=== PATIENT | female | born 1965 | race Caucasian/White ===

== ENCOUNTER 2019-05-31 08:22 | Inpatient (IN) ==
--- NOTE | 2019-05-06 16:19 | PAT Medication Instructions ---
Medication Instructions Date of Service May 06, 2019 Home Medications aspirin 81 mg tablet,delayed release 81 mg PO DAILY atorvastatin 40 mg tablet 40 mg PO QPM carvedilol 12.5 mg tablet 12.5 mg PO BID dulaglutide 1.5 mg/0.5 mL subcutaneous pen injector 1.5 mg SQ WEEKLY ezetimibe 10 mg tablet 10 mg PO HS metformin 1,000 mg tablet 1,000 mg PO BID pantoprazole 40 mg tablet,delayed release 40 mg PO QAM ramipril 10 mg capsule 10 mg PO QAM albuterol sulfate 1 inh INHALATION UD PRN cholecalciferol (vitamin D3) 5,000 unit PO DAILY ibuprofen 400 mg PO BID Continue as directed dulaglutide 1.5 mg/0.5 mL subcutaneous pen injector 1.5 mg SQ WEEKLY ASK your surgeon for instructions ibuprofen 400 mg PO BID DO NOT take the morning of surgery metformin 1,000 mg tablet 1,000 mg PO BID ramipril 10 mg capsule 10 mg PO QAM cholecalciferol (vitamin D3) 5,000 unit PO DAILY Take morning of surgery With a small sip of water, OTHERWISE NOTHING TO EAT OR DRINK AFTER MIDNIGHT: aspirin 81 mg tablet,delayed release 81 mg PO DAILY carvedilol 12.5 mg tablet 12.5 mg PO BID pantoprazole 40 mg tablet,delayed release 40 mg PO QAM albuterol sulfate 1 inh INHALATION UD PRN (if needed) Take evening before surgery atorvastatin 40 mg tablet 40 mg PO QPM carvedilol 12.5 mg tablet 12.5 mg PO BID ezetimibe 10 mg tablet 10 mg PO HS metformin 1,000 mg tablet 1,000 mg PO BID albuterol sulfate 1 inh INHALATION UD PRN (if needed) Other Notes If you have any questions please call us at [phone] or [phone] or [phone] or [phone]
--- NOTE | 2019-05-07 09:49 | Anesthesiology Consultation ---
Date of Service May 07, 2019 Assessment & Plan (1) Encounter for pre-operative examination: CHECK BSG AM DOS Chart Review Chart Review: Acceptable Risk for Surgery (pending response re: optimization from cardio) and Patient seen in Pre Admission Testing Teaching & Discussion Instructed NPO after midnight before surgery, except medications with 15 cc of water. Medication instructions provided according to the PAT guidelines. History Surgery Operation Date: 05/31/19 07:45 Proposed Procedures p L5-S1 Decompression and Fusion, Possible L4-L5 with Spinal Cord Monitoring - Ryan Karimi, Height/Weight Height: 5 ft 8 in Weight: 128.7 kg Allergies Allergy/AdvReac Type Severity Reaction Status Date / Time hydrocodone Allergy Severe Severe Verified 04/30/19 13:22 Hives adhesive Allergy Unknown SKIN Verified 04/30/19 13:22 REDNESS, SKIN BLISTERS, SKIN TEAR amitriptyline Allergy Unknown RAISES Verified 04/30/19 13:53 BLOOD PRESSURE bee venom protein (honey bee) Allergy Unknown SEVERE Verified 04/30/19 13:22 SWELLING AT BITE SITE chlorhexidine Allergy Unknown SKIN Verified 04/30/19 13:53 REDNESS AND SKIN BURNING SENSATION latex Allergy Unknown SEE NOTES Verified 04/30/19 13:53 BELOW erythromycin base AdvReac Unknown STOMACH Verified 04/30/19 13:22 PAINS AND DIARRHEA Medications Home Medications Medication Instructions Recorded Confirmed Last Taken aspirin 81 mg tablet,delayed 81 mg PO DAILY 01/02/19 04/30/19 Unknown release atorvastatin 40 mg tablet 40 mg PO QPM 01/02/19 04/30/19 Unknown carvedilol 12.5 mg tablet 12.5 mg PO BID 01/02/19 04/30/19 Unknown dulaglutide 1.5 mg/0.5 mL 1.5 mg SQ WEEKLY ml 01/02/19 04/30/19 Unknown subcutaneous pen injector ezetimibe 10 mg tablet 10 mg PO HS 01/02/19 04/30/19 Unknown metformin 1,000 mg tablet 1,000 mg PO BID 01/02/19 04/30/19 Unknown pantoprazole 40 mg tablet,delayed 40 mg PO QAM 01/02/19 04/30/19 Unknown release ramipril 10 mg capsule 10 mg PO QAM 01/02/19 04/30/19 Unknown albuterol sulfate 1 inh INHALATION UD PRN 04/30/19 04/30/19 Unknown cholecalciferol (vitamin D3) 5,000 unit PO DAILY 04/30/19 04/30/19 Unknown [Vitamin D3] ibuprofen 400 mg PO BID 04/30/19 04/30/19 Unknown Past Medical History Medical History (Updated 05/07/19 @ 16:27 by Hong Stone) Asthma (Chronic) CAD (coronary artery disease) (Chronic) S/P [place] 2017. COPD (chronic obstructive pulmonary disease) (Chronic) Does not use Albuterol or a daily inhaler. States she has known triggers and can avoid them. Degenerative disc disease Depression (Chronic) HX OF Diabetes GERD (gastroesophageal reflux disease) Herniated disc HTN (hypertension) (Chronic) Hx of myocardial infarction (Chronic) 2017 Hypercholesteremia (Chronic) Morbid obesity Pars defect of lumbar spine Sleep apnea CPAP Spondylolisthesis Spondylosis Exercise / Class Metabolic Activity III < 4 Walking/Shop/Light housework (Mild VELEZ with ambulation on one level, uses wheelchair at home due to severe leg pain/weakness 2/2 spinal stenosis. No CP.) Past Family History Family History (Updated 04/30/19 @ 13:34 by Jaylon Ureña RN) Grandmother (Paternal) Family history of colon cancer Grandfather (Paternal) Family history of colon cancer Mother Family history of diverticulitis of colon Other Family history of diabetes mellitus Past Surgical History Surgical History Cervical vertebral fusion H/O hemorrhoidectomy History of appendectomy History of coronary artery stent placement 2017 History of hysterectomy History of shoulder surgery LEFT Past Anesthesia History No Hx of Anesthesia Complications and No Family Hx of Anesthesia Complications History of PONV No Hx of PONV and Hx of Motion Sickness Social History Smoking Status: Current every day smoker tobacco type: cigarettes Smoking cigarettes per day: 5 CIGS A DAY / ADVISED NPO Do You Dip or Chew Tobacco: No Hx Alcohol Use: No Hx Substance Use: No substance use type: does not use Review of Systems Pt denies any recent chest pain, shortness of breath above baseline, palpitations, cough, fever or URI. Physical Exam Vital Signs BP: 169/88 P: 73bpm SPO2: 95% RA T: 98.3 F R: 16 Constitutional + morbidly obese ENMT Mouth: + dentures (upper full, posts in bottom but bottom denture is broken and does not wear) and + edentulous Thyromental Distance: < 3.5 Finger Breadths (3) Mallampati Class: II Neck normal visual inspection; neck extension not limited Respiratory normal respiratory effort Auscultation: lungs clear to auscultation bilaterally Cardiovascular Rate/Rhythm: regular rate and regular rhythm Heart Sounds: no murmur Extremities: no edema Testing Laboratory Results 05/07/19 10:04 05/07/19 10:04 PT 10.4 Seconds (9.0-12.0) 05/07/19 10:04 INR 1.0 (0.9-1.1) 05/07/19 10:04 APTT 26.2 Seconds (21.0-31.0) 05/07/19 10:04 Hemoglobin A1c 7.3 % (4.5-5.6) H 05/07/19 10:04 Urine Color Yellow 05/07/19 Unknown Urine Appearance Clear (Clear) 05/07/19 Unknown Urine pH 5.5 (4.5-7.5) 05/07/19 Unknown Ur Specific Roby 1.011 (1.000-1.030) 05/07/19 Unknown Urine Protein Negative (Negative) 05/07/19 Unknown Urine Glucose (UA) Negative (Negative) 05/07/19 Unknown Urine Ketones Negative (Negative) 05/07/19 Unknown Urine Nitrite Negative (Negative) 05/07/19 Unknown Ur Leukocyte Esterase Negative (Negative) 05/07/19 Unknown Blood Type A Negative 05/07/19 10:04 Antibody Screen NEGATIVE 05/07/19 10:04 Electrocardiogram Date: 10/01/18 Findings: + NSR @ (75) Consider old anterior infarct. Stress Test Date: 06/08/18 Type: nuclear Resting EF: 69% SPECT perfusion imaging demonstrates no evidence of ischemia or infarct. Gated imaging demonstrates normal LV wall motion and contractility. Cardiac Catheterization Date: 01/03/17 Spontaneous versus catheter induced proximal right coronary artery spasm with associated transient ST segment elevation, resolved with intracoronary nitroglycerin. Nonobstructive single-vessel coronary disease. RCA proximal 30% (patent mid vessel stent), the basis of angiographic, as well as intravascular ultrasound assessment. Normal LV systolic function. Recommendations: Given the presence of coronary spasm, isosorbide mononitrate 30 mg will be added to her medical regimen... Patient will continue the remainder of her guideline-based medical therapy.
--- NOTE | 2019-05-07 10:32 | XRay Report ---
XR chest Pre-admission PA/Lat CLINICAL HISTORY: Preoperative chest COMPARISON STUDY: February 2011 FINDINGS: The heart is borderline enlarged. There is no failure. There is no focal pulmonary consolid ation. There are no pleural effusions. A slight contour bulge at the level of the left main pulmonary segment remain similar is therefore likely vascular. There are postsurgical changes present within t he cervical spine[ IMPRESSION: No active disease in the chest. ACT 112: Negative or not required by law. Electronically signed by: Moiz Goode M.D. 05/07/2019 10:31 AM
[2019-05-07 12:08] LABS: Basophils # (auto) 0.02 K/uL (0-0.2); Basophils % (auto) 0.2 %; Eosinophils # (auto) 0.12 K/uL (0-0.5); Eosinophils % (auto) 1.1 %; Hematocrit (blood only) 38.3 % (37-47); Hemoglobin 12.2 g/dL (12.0-16.0); Immature Granulocytes # (auto) 0.03 K/uL (0.00-0.02); Immature Granulocytes % (auto) 0.3 %; Lymphocytes # (auto) 3.04 K/uL (1.2-3.4); Lymphocytes % (auto) 27.2 %; Mean Corpuscular Hemoglobin 29.7 pg (25-34); Mean Corpuscular Hgb Conc 31.9 g/dL (32-36); Mean Corpuscular Volume 93.2 fL (80-100); Mean Platelet Volume 10.3 fL (7.4-10.4); Monocytes # (auto) 0.42 K/uL (0.11-0.59); Monocytes % (auto) 3.8 %; Neutrophils # (auto) 7.54 K/uL (1.4-6.5); Neutrophils % (auto) 67.4 %; Platelet Count 309 K/uL (130-400); RDW Coefficient of Variation 15.5 % (11.5-14.5); RDW Standard Deviation 52.8 fL (36.4-46.3); Red Blood Count 4.11 M/uL (4.2-5.4); White Blood Count 11.17 K/uL (4.8-10.8)
[2019-05-07 12:09] LABS: Appearance Urine Clear (Clear); Bilirubin Urine Negative (Negative); Blood Urine Negative (Negative); Color Urine Yellow; Glucose Urine UA Negative (Negative); Ketones Urine Negative (Negative); Leukocyte Esterase Urine Negative (Negative); Nitrite Urine Negative (Negative); Protein Urine Negative (Negative); Specific Gravity Urine 1.011 (1.000-1.030); Urobilinogen Urine Negative (Negative); pH Urine 5.5 (4.5-7.5)
[2019-05-07 12:18] LABS: Partial Thromboplastin Ratio 0.9; Partial Thromboplastin Time 26.2 Seconds (21.0-31.0); Prothrombin Time 10.4 Seconds (9.0-12.0)
[2019-05-07 12:25] LABS: BUN Creatinine Ratio 10.9 (10-20); Calcium 8.9 mg/dl (8.5-10.1); Creatinine Clr Calc Pharmacy 128.4 ml/min; Est GFR (African American) 111.9; Est GFR (Non-African American) 96.6; Potassium 3.9 mmol/L (3.5-5.1)
[2019-05-07 12:29] LABS: Estimated Average Glucose 163 mg/dl; Hemoglobin A1C 7.3 % (4.5-5.6)
--- NOTE | 2019-05-29 08:07 | History & Physical Report ---
Date of Service May 29, 2019 Assessment & Plan (1) Spondylolisthesis of lumbar region: At this time the patient has significant spinal pathology and progressive neurologic deficits with the risk of chronic weakness and permanent sequelae. Therefore recommending urgent lumbar decompression and fusion L5-S1 with possible fusion of L4-5. Risk benefits pros cons and alternatives were outlined in detail. Present on Admission?: Yes History of Present Illness Chief Complaint: Back pain with bilateral leg pain and weakness. Primary Care Provider: Karan Murali This is a 53-year-old female presents with chronic persistent low back pain and now worsening bilateral leg pain and weakness right greater than left. She is undergone extensive course of nonoperative care over the years but now has had progressive pain specifically involving the right buttock posterior thigh extending into the foot. In the standing walking and sitting is markedly limited. She is utilizing a wheelchair as she is unable to stand. Allergies Allergy/AdvReac Type Severity Reaction Status Date / Time hydrocodone Allergy Severe Severe Verified 04/30/19 13:22 Hives adhesive Allergy Unknown SKIN Verified 04/30/19 13:22 REDNESS, SKIN BLISTERS, SKIN TEAR amitriptyline Allergy Unknown RAISES Verified 04/30/19 13:53 BLOOD PRESSURE bee venom protein (honey bee) Allergy Unknown SEVERE Verified 04/30/19 13:22 SWELLING AT BITE SITE chlorhexidine Allergy Unknown SKIN Verified 04/30/19 13:53 REDNESS AND SKIN BURNING SENSATION latex Allergy Unknown SEE NOTES Verified 04/30/19 13:53 BELOW erythromycin base AdvReac Unknown STOMACH Verified 04/30/19 13:22 PAINS AND DIARRHEA Home Medications Home Medications Medication Instructions Recorded Confirmed Type aspirin 81 mg tablet,delayed 81 mg PO DAILY 01/02/19 04/30/19 History release atorvastatin 40 mg tablet 40 mg PO QPM 01/02/19 04/30/19 History carvedilol 12.5 mg tablet 12.5 mg PO BID 01/02/19 04/30/19 History dulaglutide 1.5 mg/0.5 mL 1.5 mg SQ WEEKLY ml 01/02/19 04/30/19 History subcutaneous pen injector ezetimibe 10 mg tablet 10 mg PO HS 01/02/19 04/30/19 History metformin 1,000 mg tablet 1,000 mg PO BID 01/02/19 04/30/19 History pantoprazole 40 mg tablet,delayed 40 mg PO QAM 01/02/19 04/30/19 History release ramipril 10 mg capsule 10 mg PO QAM 01/02/19 04/30/19 History albuterol sulfate 1 inh INHALATION UD PRN 04/30/19 04/30/19 History cholecalciferol (vitamin D3) 5,000 unit PO DAILY 04/30/19 04/30/19 History [Vitamin D3] ibuprofen 400 mg PO BID 04/30/19 04/30/19 History Past Med/Surg History Medical History (Updated 05/07/19 @ 16:27 by Hong Stone) Asthma (Chronic) CAD (coronary artery disease) (Chronic) S/P [place] 2017. COPD (chronic obstructive pulmonary disease) (Chronic) Does not use Albuterol or a daily inhaler. States she has known triggers and can avoid them. Degenerative disc disease Depression (Chronic) HX OF Diabetes GERD (gastroesophageal reflux disease) Herniated disc HTN (hypertension) (Chronic) Hx of myocardial infarction (Chronic) 2017 Hypercholesteremia (Chronic) Morbid obesity Pars defect of lumbar spine Sleep apnea CPAP Spondylolisthesis Spondylosis Surgical History Cervical vertebral fusion H/O hemorrhoidectomy History of appendectomy History of coronary artery stent placement 2017 History of hysterectomy History of shoulder surgery LEFT Family History (Updated 04/30/19 @ 13:34 by Jaylon Ureña RN) Grandmother (Paternal) Family history of colon cancer Grandfather (Paternal) Family history of colon cancer Mother Family history of diverticulitis of colon Other Family history of diabetes mellitus Social History Preferred Language: Nepali Communication Ability: Effective Visual Impairment: No Limitations Hearing Ability: Normal Public Address Technician Required: No Beliefs That Will Affect Care: None marital status: Single Current Living Situation: Family and Significant Other Current Living Situation Comment: [facility]ANCE AND CHILD current occupational status: disabled Other Information That Helps Us Care for You: Yes (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, 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) Feels Safe at Home: Yes Smoking Status: Current every day smoker Tobacco Type: cigarettes ; Cigarettes Per Day: 5 CIGS A DAY / ADVISED NPO ; Do You Dip or Chew Tobacco: No ; Tobacco Cessation Education Requested by Patient: No Hx Alcohol Use: No Hx Substance Use: No Physical Exam Physical Exam: On exam she is in obvious distress. She is unable to stand without significant assistance. She is in a wheelchair. She exhibits significant weakness at a 3/5 right dorsiflexion plantarflexion as well as a 4/5 right quadricep. Left side is a 5/5. There is marked sensory deficits to the right lower extremity compared to the left. There is evidence of tension signs on the right. Results & Data Diagnostic Findings MRI lumbar spine dated 04/26/2019 I reviewed personally. It does demonstrate evidence of modest to space collapse and retrolisthesis L4-L5 with anterior listhesis L5-S1 Bilateral neuroforaminal disease at L5-S1.
[~2019-05-31 08:22] MED LIST: ACETAMINOPHEN 500 MG TAB PO SCH; CEFAZOLIN 3000MG 72.5 ML IV SCH; CeleBREX 200 MG CAP PO SCH; GABAPENTIN 900 MG DOSE PO SCH; HYDROmorphone INJ 2 MG/ML SYR/VIAL ONE; LR 15ML/HR IV SCH; MIDAZOLAM HCL 1 MG/ML 2ML VIAL ONE; fentaNYL citrate 100 MCG/2 ML VIAL ONE
[2019-05-31] MEDS ORDERED: ePHEDrine sulfate 50 MG/ML AMP IV PRN (08:33)
[2019-05-31] MEDS ORDERED: ATROPINE SULFATE 0.1 MG/ML 10ML SYR IV PRN (08:33)
[2019-05-31] MEDS ORDERED: ONDANSETRON INJ 2 MG/ML 2 ML VIAL IV PRN ×2 (08:33→15:02)
[2019-05-31] MEDS ORDERED: PHENYLEPHRINE 100MCG/ML 5ML SYR IV PRN (08:33)
[2019-05-31] MEDS ORDERED: LABETALOL HCL IV 5 MG/ML 20ML IV PRN (08:33)
--- NOTE | 2019-05-31 10:07 | History & Physical Bridge Note ---
Date of Service May 31, 2019 History & Physical Bridge Note I have examined the patient, reviewed the History & Physical and in the interval since the performance of the History & Physical I have noted the following changes of clinical significance: no changes noted
[2019-05-31] MEDS ORDERED: BUPIVACAINE/EPINEPHRINE 0.5% MPF 1:200,000 10 ML VIAL ONE (10:16)
[2019-05-31] MEDS ORDERED: BACITRACIN INJ 50,000 UNIT VIAL ONE (10:16)
[2019-05-31] MEDS ORDERED: DEXAMETHASONE SOD INJ 4 MG/ML VIAL ONE (11:18)
[2019-05-31] MEDS ORDERED: PROPOFOL IV EMULSION 10 MG/ML 20 ML VIAL IV ONE (11:18)
[2019-05-31] MEDS ORDERED: SUCCINYLCHOLINE CHLORIDE 20 MG/ML 10 ML VIAL ONE (11:18)
[2019-05-31] MEDS ORDERED: ROCURONIUM BROMIDE 10 MG/ML 5 ML VIAL ONE (11:18)
[2019-05-31] MEDS ORDERED: GLYCOPYRROLATE 0.2 MG/ML VIAL ONE (11:18)
[2019-05-31] MEDS ORDERED: ONDANSETRON INJ 2 MG/ML 2 ML VIAL ONE (11:18)
[2019-05-31] MEDS ORDERED: LIDOCAINE HCL 2% 2 ML VIAL/AMP(20MG/ML) INFIL ONE (11:18)
[2019-05-31] MEDS ORDERED: NEOSTIGMINE METHYLSULFATE 5 MG/5 ML SYR ONE (11:18)
[2019-05-31] MEDS ORDERED: FLOSEAL HEMOSTATIC MATRIX 10ML TOP ONE (12:07)
--- NOTE | 2019-05-31 12:30 | Operative Report ---
Post Operative Report Pre & Post Diagnosis Operation Date: 05/31/19 10:05 Pre-Op Diagnosis: Lumbar spinal stenosis with radiculopathy Lumbar spinal listhesis L5-S1. Morbid obesity. Post-Op Diagnosis: Same I identified the patient and participated in the time-out.: Yes Procedure Operation Date: 05/31/19 10:05 Actual Procedures #1 lumbar decompression with bilateral medial facetectomies and foraminotomies L4-5 and L5-S1. #2 posterior spinal fusion L5-S1. #3 placement posterior instrumentation L5-S1. #4 interbody fusion L5-S1. #5 placement of titanium 11 x 22 mm cage L5-S1. #6 placement locally harvested morselized autograft in the posterior gutters. #7 placement his collagen sponge by mass graft in the posterior lateral gutters and ostial amp interbody space. Surgeon Ryan Karimi, Impregnator Helper None Estimated Blood Loss 100 Findings See Below Patient is 5 foot 8 inches tall weighing over 127 kg with a BMI in excess of 42. The patient's body habitus did add significant technical difficulty requiring her deepest retractors and longus instruments in order to perform her procedure. She will also require additional follow-up to ensure appropriate healing. This added at least 50% increase to the operative time. Specimens None Indications This is a 53-year-old female who presents with worsening bilateral leg pain weakness and numbness progressive in nature and subsequently is here for urgent decompression fusion. Description of Procedure Patient was met with identified informed consent obtained. Patient was then taken to the operative suite underwent an patient placed in a prone position the Andrae table on top of the Teto frame. All bony prominences well-padded eyes inspected to ensure no external pressure placed upon the. This point the lumbar spine was prepped and draped in normal sterile fashion. Sharp dissection with the assistance of Bovie cautery performed down to and exposing the lamina and transverse processes of L5 and sacral ala bilaterally. Obvious bilateral pars defect identified. A complete laminectomy of L5 partial anatomy of L4 was performed including bilateral medial facetectomies and foraminotomies addressing severe neural compression. Pedicle screws were then placed in L5 and S1 levels bilaterally with assistance of fluoroscopy and proper sized spike placed. Believe a transforaminal approach on the right complete discectomy was performed endplates curetted to subcortical bleeding bone and an 11 x 22 mm titanium cage filled with osteo-bone graft tapped in position. The rods were then locked into final position bilaterally. The transverse processes of L5 and the sacral ala burred to subcortical bleeding bone. Infuse collagen sponge master graft local autograft placed in the posterior lateral gutters. 15 round BETZY drain inserted. The incision was then closed with 1 Vicryl in the fascia 2-0 Vicryl subcutaneously and 4 Monocryl for final skin closure. Steri-Strip sterile dressings placed. Patient will continue to PACU stable condition. Please note spinal cord monitoring was utilized that the procedure no changes noted. I attest to the content of the Intraoperative Record and any orders documented therein. Any exceptions are noted below.
--- NOTE | 2019-05-31 12:31 | Fluoroscopy Report ---
FL lumbar spine 2-3V CLINICAL HISTORY: L5-S1 DECOMP/FUSION COMPARISON STUDY: None. FLUOROSCOPY TIME: 23 seconds. FLUOROSCOPIC IMAGES: 2 FINDINGS: These images demonstrate an L5-S1 discectomy with interbody spacer placement. There is a po sterior decompression. There are bilateral pedicle screws at the L5 and S1 levels with interconnectin g rods. Alignment appears anatomic. There are no unexpected radiopaque foreign bodies. IMPRESSION: Fluoroscopy provided for L5-S1 discectomy, posterior decompression and bilateral pedicle screw fusion. ACT 112: Negative or not required by law. Electronically signed by: Rick Fink M.D. 05/31/2019 12:30 PM
[2019-05-31] MEDS: fentaNYL citrate 100 MCG/2 ML VIAL IV PRN ×4 (12:40→12:55)
[2019-05-31] MEDS: MEPERIDINE HCL 25 MG/ML CARP/VIAL IV PRN ×2 (13:10→13:15)
[2019-05-31] MEDS ORDERED: HYDROmorphone INJ 1 MG/ML SYRINGE ONE (13:26)
[2019-05-31] MEDS ORDERED: HYDROmorphone INJ 1 MG/ML SYRINGE IV STA (13:26)
--- NOTE | 2019-05-31 14:05 | Anesthesiology Progress Note ---
Date of Service May 31, 2019 Anesthesia Post Procedure Vital Signs Vital Signs: Temp Pulse Pulse Resp BP Pulse Ox 05/31/19 13:55 89 14 127/81 92 05/31/19 13:40 37 C 85 15 130/74 92 05/31/19 13:30 87 16 146/86 H 92 05/31/19 13:20 87 15 165/93 H 94 05/31/19 13:10 82 17 163/79 H 94 05/31/19 13:00 80 14 141/70 H 97 05/31/19 12:50 80 18 142/67 H 98 05/31/19 12:40 84 15 160/98 H 98 05/31/19 12:34 36.2 C L 88 16 167/98 H 98 05/31/19 08:45 36.5 C 92 H 20 146/98 H 95 Pain Intensity Back: Pain Intensity: 2 Transfer of Care Handoff Completed per policy Notes Mental Status: alert / awake / arousable Patient Amnestic to Procedure: Yes Nausea / Vomiting: adequately controlled Pain: adequately controlled Airway Patency, RR, SpO2: stable & adequate BP & HR: stable & adequate Hydration State: stable & adequate Anesthetic Complications: no major complications apparent and Pt Satisfied with anesthetic care Notes: The patient is awake and comfortable. Her vitals are stable.
[2019-05-31] MEDS ORDERED: FAMOTIDINE 20 MG TAB PO PRN (15:02)
[2019-05-31] MEDS ORDERED: HYDROmorphone INJ 1 MG/ML SYRINGE IV PRN (15:02)
[2019-05-31] MEDS ORDERED: SOD PHOSPHATE/SOD BIPHOSPHATE ENEMA 132 ML BTL PR PRN (15:02)
[2019-05-31] MEDS ORDERED: LORazepam 0.5 MG/1 ML VIAL IV PRN (15:02)
[2019-05-31] MEDS ORDERED: HYDROmorphone INJ 0.5 MG/0.5 ML SYR IV PRN (15:02)
[2019-05-31] MEDS ORDERED: METOCLOPRAMIDE HCL INJ 5 MG/ML 2 ML VIAL IV PRN (15:02)
[2019-05-31] MEDS ORDERED: ONDANSETRON 4 MG OD TAB PO PRN (15:02)
[2019-05-31] MEDS ORDERED: ACETAMINOPHEN 1,000 MG/100 ML VIAL IV PRN (15:02)
[2019-05-31] MEDS ORDERED: NALOXONE HCL 0.4 MG/1 ML VIAL/CARP IV PRN (15:02)
[2019-05-31] MEDS ORDERED: DO NOT ADMINISTER PNEUMOCOCCAL VACCINE PRN (15:02)
[2019-05-31] MEDS ORDERED: ACETAMINOPHEN 500 MG TAB PO PRN (15:02)
[2019-05-31] MEDS ORDERED: LORazepam 0.5 MG TAB PO PRN (15:02)
[2019-05-31] MEDS ORDERED: ALUMINUM/MAGNESIUM SUSP 30 ML UDC PO PRN (15:02)
[2019-05-31] MEDS ORDERED: MAGNESIUM HYDROXIDE SUSP 30 ML UDC PO PRN (15:02)
[2019-05-31] MEDS ORDERED: ALBUTEROL HFA 8 GM INHALER INH PRN (15:02)
[2019-05-31] MEDS ORDERED: DO NOT ADMINISTER FLU VACCINE PRN (15:02)
[2019-05-31] MEDS ORDERED: bisacodyL 10 MG SUPP PR PRN (15:02)
[2019-05-31] MEDS ORDERED: PROMETHAZINE HCL 12.5 MG in SODIUM CHLORIDE 0.9% 50 ML IV PRN (15:02)
[2019-05-31] MEDS: SODIUM CHLORIDE 0.9% 1000ML 1,000 ML IV SCH ×2 (15:39→21:49)
--- NOTE | 2019-05-31 17:03 | Consultation ---
Date of Consultation May 31, 2019 Assessment & Plan (1) Lumbar radiculopathy: s/p L4-S1 decompression pain control, activity, DVT prophylaxis per Dr. Karimi check labs in the morning (2) Spondylolisthesis of lumbar region: s/p surgery, no pain, she is moving legs (3) Type 2 diabetes mellitus: will hold Metformin, she is on Trulicity at home use Novolog SS, diabetic diet (4) CAD (coronary artery disease): no issues since 2017 will continue antiplatelet therapy, Coreg (5) HTN (hypertension): check BMP in the morning hold DAYO until we check otherwise continue Amlodipine and Coreg History of Present Illness Requesting Physician: Dr. Karimi Reason for Consultation: Medical management Attending Physician: Ryan Karimi, DO History of Present Illness 53 yo female with long history of severe spinal stenosis with bilateral radicular pain, left leg weakness, foot numbness bilaterally. She is admitted after having lumbar decompression from L4-S1. Currently she is without severe pain, breathing well, no chest pain. She has been drinking some water, no food intake yet. She has been taking deep breaths with her bedside spirometry. She said that she has been dealing with the back pain and radicular pain for months. She was originally supposed to have surgery in October 2018 but her surgeon in [place] left the area and she was left without a surgeon. She was experiencing severe pain, no conservative measures could help so she was brought in for surgery. She has a history of CAD with an MO in 2016 treated with stent. She says that she has not had any further heart issues since that time. She takes several medications for blood pressure control. She takes Trulicity and Metformin for DM. She reports that her sugars are well controlled at home. Allergies Allergy/AdvReac Type Severity Reaction Status Date / Time hydrocodone Allergy Severe Severe Verified 05/31/19 08:47 Hives adhesive Allergy Unknown SKIN Verified 05/31/19 08:47 REDNESS, SKIN BLISTERS, SKIN TEAR amitriptyline Allergy Unknown RAISES Verified 05/31/19 08:47 BLOOD PRESSURE bee venom protein (honey bee) Allergy Unknown SEVERE Verified 05/31/19 08:47 SWELLING AT BITE SITE chlorhexidine Allergy Unknown SKIN Verified 05/31/19 08:47 REDNESS AND SKIN BURNING SENSATION latex Allergy Unknown SEE NOTES Verified 05/31/19 08:47 BELOW erythromycin base AdvReac Unknown STOMACH Verified 05/31/19 08:47 PAINS AND DIARRHEA Home Medications Home Medications Medication Instructions Recorded Confirmed Type aspirin 81 mg tablet,delayed 81 mg PO DAILY 01/02/19 05/31/19 History release atorvastatin 40 mg tablet 40 mg PO QPM 01/02/19 05/31/19 History carvedilol 12.5 mg tablet 12.5 mg PO BID 01/02/19 05/31/19 History dulaglutide 1.5 mg/0.5 mL 1.5 mg SQ WEEKLY ml 01/02/19 05/31/19 History subcutaneous pen injector ezetimibe 10 mg tablet 10 mg PO HS 01/02/19 05/31/19 History metformin 1,000 mg tablet 1,000 mg PO BID 01/02/19 05/31/19 History pantoprazole 40 mg tablet,delayed 40 mg PO QAM 01/02/19 05/31/19 History release ramipril 10 mg capsule 10 mg PO QAM 01/02/19 05/31/19 History albuterol sulfate 1 inh INHALATION UD PRN 04/30/19 05/31/19 History cholecalciferol (vitamin D3) 5,000 unit PO DAILY 04/30/19 05/31/19 History [Vitamin D3] ibuprofen 400 mg PO BID 04/30/19 05/31/19 History amlodipine [Norvasc] 5 mg PO DAILY 05/31/19 05/31/19 History Patient History Family History (Updated 04/30/19 @ 13:34 by Jaylon Ureña RN) Grandmother (Paternal) Family history of colon cancer Grandfather (Paternal) Family history of colon cancer Mother Family history of diverticulitis of colon Other Family history of diabetes mellitus Social History Preferred Language: Turkmen Communication Ability: Effective Visual Impairment: No Limitations Hearing Ability: Normal Treasurer Required: No Beliefs That Will Affect Care: None marital status: Single Current Living Situation: Family and Significant Other Current Living Situation Comment: [facility]ANCE AND CHILD current occupational status: disabled Other Information That Helps Us Care for You: Yes (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, 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) Feels Safe at Home: Yes Smoking Status: Current every day smoker Tobacco Type: cigarettes ; Cigarettes Per Day: 5 CIGS A DAY / ADVISED NPO ; Do You Dip or Chew Tobacco: No ; Tobacco Cessation Education Requested by Patient: No Hx Alcohol Use: No Hx Substance Use: No Review of Systems Review of Systems: All systems reviewed & are unremarkable except as noted in HPI & below Constitutional: no fever, no chills, no sweats, no fatigue and no weakness Respiratory: no cough and no dyspnea Cardiovascular: no chest pain and no edema Gastrointestinal: no abdominal pain, no nausea, no vomiting, no constipation and no diarrhea/loose stools Musculoskeletal: + back pain (mild) and + muscle weakness Physical Exam Constitutional: WD/WN, vitals as above + obese Eyes: PERRL, conjunctivae normal, anicteric sclerae ENMT: external ear and nose normal, oropharynx normal Neck: trachea midline, no thyromegaly Respiratory: normal respiratory effort, lungs clear to auscultation Cardiovascular: RRR, no murmur, no edema Gastrointestinal (Abdomen): normal bowel sounds, soft, nontender, no hepatosplenomegaly Musculoskeletal: Head/Neck/Chest: normocephalic and head atraumatic Spine: + limited thoraco-lumbar ROM Extremities: extremities normal to inspection, + limited ROM of extremities and strength 5/5 throughout Skin: no rashes, warm and dry Neurologic: patellar DTR's 2+ bilat, sensation intact and PERRL, EOMI, accommodation nl, no face palsy, no dysarthria Psychiatric: A+Ox3, euthymic affect Lymphatic: no cervical or axillary lymphadenopathy Results & Data ([facility]) Vital Signs (Past 12 Hours) Vital Signs Temp Pulse Pulse Resp BP Pulse Ox 05/31/19 16:32 36.5 C 89 18 136/84 96 05/31/19 15:28 36.4 C 88 20 161/90 H 94 05/31/19 15:09 86 18 144/85 H 93 05/31/19 14:30 36.7 C 88 16 133/81 95 05/31/19 13:55 89 14 127/81 92 05/31/19 13:40 37 C 85 15 130/74 92 05/31/19 13:30 87 16 146/86 H 92 05/31/19 13:20 87 15 165/93 H 94 05/31/19 13:10 82 17 163/79 H 94 04/03/20 13:00 80 14 141/70 H 97 05/31/19 12:50 80 18 142/67 H 98 05/31/19 12:40 84 15 160/98 H 98 05/31/19 12:34 36.2 C L 88 16 167/98 H 98 05/31/19 08:45 36.5 C 92 H 20 146/98 H 95 PG Care Time/CCT Total # of Minutes Spent Total Time Spent with Patient: Total time spent is greater than 50% in coordination of care (as documented) at patient's floor/unit and/or counseling patient: Coding Level of Care Code 16611 Inpt Consult Level 3 Diagnoses Lumbar radiculopathy M54.16 Spondylolisthesis of lumbar region M43.16 Type 2 diabetes mellitus E11.9 CAD (coronary artery disease) I25.10 HTN (hypertension) I10
[2019-05-31] MEDS: INSULIN ASPART 100 UNITS/ML 3 ML PEN SC SCH ×2 (17:51→21:44)
[2019-05-31] MEDS: CEFAZOLIN 2000MG 2,000 MG/15 ML SYR IV SCH (17:52)
[2019-05-31] MEDS: OXYCODONE HCL IR 5 MG TAB (IMMEDIATE RELEASE) PO PRN ×2 (17:52→21:52)
[2019-05-31] MEDS: KETOROLAC TROMETHAMINE 15 MG/ML VIAL IV SCH ×2 (17:53→23:41)
[2019-05-31] MEDS: EZETIMIBE 10 MG TABLET PO SCH (21:44)
[2019-05-31] MEDS: ATORVASTATIN 40 MG TAB PO SCH (21:44)
[2019-05-31] MEDS: carvediloL 12.5 MG TAB PO SCH (21:44)
[2019-05-31] MEDS: DOCUSATE SODIUM/SENNA 50/8.6MG TAB PO SCH (21:44)
[2019-06-01] MEDS: CEFAZOLIN 2000MG 2,000 MG/15 ML SYR IV SCH (03:08)
[2019-06-01] MEDS: KETOROLAC TROMETHAMINE 15 MG/ML VIAL IV SCH ×2 (04:49→12:26)
[2019-06-01] MEDS: POLYETHYLENE (MIRALAX) 17 GM PACK PO SCH ×4 (05:18→23:33)
[2019-06-01 05:29] LABS: Eosinophils # (auto) 0.01 K/uL (0-0.5); Eosinophils % (auto) 0.1 %; Hematocrit (blood only) 34.7 % (37-47); Immature Granulocytes # (auto) 0.06 K/uL (0.00-0.02); Immature Granulocytes % (auto) 0.3 %; Lymphocytes # (auto) 2.83 K/uL (1.2-3.4); Lymphocytes % (auto) 15.8 %; Mean Corpuscular Hemoglobin 29.3 pg (25-34); Mean Corpuscular Hgb Conc 31.7 g/dL (32-36); Mean Corpuscular Volume 92.3 fL (80-100); Mean Platelet Volume 9.3 fL (7.4-10.4); Monocytes # (auto) 0.81 K/uL (0.11-0.59); Monocytes % (auto) 4.5 %; Neutrophils # (auto) 14.18 K/uL (1.4-6.5); Neutrophils % (auto) 79.3 %; Platelet Count 385 K/uL (130-400); RDW Coefficient of Variation 15.2 % (11.5-14.5); RDW Standard Deviation 51.4 fL (36.4-46.3); Red Blood Count 3.76 M/uL (4.2-5.4); White Blood Count 17.89 K/uL (4.8-10.8)
[2019-06-01 05:53] LABS: BUN Creatinine Ratio 15.7 (10-20); Calcium 8.6 mg/dl (8.5-10.1); Est GFR (African American) 119.8; Est GFR (Non-African American) 103.3
[2019-06-01] MEDS: OXYCODONE HCL IR 5 MG TAB (IMMEDIATE RELEASE) PO PRN ×4 (07:54→23:33)
[2019-06-01] MEDS: PANTOprazole 40 MG TAB PO SCH (08:51)
[2019-06-01] MEDS: ASPIRIN 81 MG ECTAB PO SCH (08:52)
[2019-06-01] MEDS: AMLODIPINE BESYLATE 5 MG TAB PO SCH (08:52)
[2019-06-01] MEDS: CHOLECALCIFEROL 1,000 UNITS 25 MCG TAB PO SCH (08:53)
[2019-06-01] MEDS: INSULIN ASPART 100 UNITS/ML 3 ML PEN SC SCH ×4 (08:53→21:32)
[2019-06-01] MEDS: carvediloL 12.5 MG TAB PO SCH ×2 (08:53→21:26)
[2019-06-01] MEDS ORDERED: ENALAPRIL MALEATE 10 MG TAB PO SCH (09:00)
--- NOTE | 2019-06-01 09:45 | Hospitalist Progress Note ---
Date of Service June 01, 2019 Assessment & Plan (1) Lumbar radiculopathy: s/p L4-S1 decompression pain control, activity, DVT prophylaxis per Dr. Karimi minimal drop in Hb this morning WBC up which is expected after surgery watch for return of bowel function, she is eating and drinking discharge plans per Dr. Karimi, medicine is okay with discharge, will sign off (2) Spondylolisthesis of lumbar region: s/p surgery, no pain, she is moving legs (3) Type 2 diabetes mellitus: will hold Metformin, she is on Trulicity at home use Novolog SS, diabetic diet, no hypoglycemic episodes okay to resume home regimen on discharge (4) CAD (coronary artery disease): no issues since 2017 will continue antiplatelet therapy, Coreg no chest pain reported (5) HTN (hypertension): resume enalapril this morning and Cr is at baseline otherwise continue Amlodipine and Coreg Admission and Anticipated Discharge Date Admission Date: May 31, 2019 Subjective patient sitting up in bed, feeling well, main complaint is pain and pressure from herndon catheter d/w Dr. Karimi, we can remove catheter reviewed labs, WBC up slightly, Hb down very slightly, renal function and electrolytes stable she is eating and drinking, working on bedside spirometry not passing flatus or BM yet but just had surgery yesterday discussed with patient that I would sign off for now, as we want to limit patient exposure, she was okay with this Review of Systems Review of Systems: All systems reviewed & are unremarkable except as noted in HPI & below Genitourinary: + problem reported (pain from herndon catheter) Musculoskeletal: + back pain (mild) Physical Exam Constitutional: WD/WN, vitals as above + obese Eyes: PERRL, conjunctivae normal, anicteric sclerae ENMT: external ear and nose normal, oropharynx normal Neck: trachea midline, no thyromegaly Respiratory: normal respiratory effort, lungs clear to auscultation Cardiovascular: RRR, no murmur, no edema Gastrointestinal (Abdomen): normal bowel sounds, soft, nontender, no hepatosplenomegaly Musculoskeletal: Head/Neck/Chest: normocephalic and head atraumatic Spine: + limited thoraco-lumbar ROM Extremities: extremities normal to inspection, + limited ROM of extremities and strength 5/5 throughout Skin: no rashes, warm and dry Neurologic: patellar DTR's 2+ bilat, sensation intact and PERRL, EOMI, accommodation nl, no face palsy, no dysarthria Psychiatric: A+Ox3, euthymic affect Lymphatic: no cervical or axillary lymphadenopathy Results & Data Results & Data ([facility]) Vital Signs (Past 12 Hours) Vital Signs Temp Pulse Pulse Resp BP Pulse Ox 06/01/19 08:51 82 142/84 H 06/01/19 07:10 36.7 C 86 18 126/71 97 06/01/19 03:07 36.5 C 84 15 123/78 94 06/01/19 00:10 36.4 C L 90 16 145/90 H 93 Laboratory Results Laboratory Results - last 24 hr 05/31/19 05/31/19 05/31/19 12:40 17:02 21:04 WBC RBC Hgb Hct MCV MCH MCHC RDW Std Deviation RDW Coeff of Alise Plt Count MPV Immature Gran % (Auto) Neut % (Auto) Lymph % (Auto) Rincon % (Auto) Eos % (Auto) Baso % (Auto) Immature Gran # (Auto) Neut # (Auto) Lymph # (Auto) Rincon # (Auto) Eos # (Auto) Baso # (Auto) Sodium Potassium Chloride Carbon Dioxide Anion Gap BUN Creatinine Est Cr Clr Drug Dosing Est GFR ( Amer) Est GFR (Non-Af Amer) BUN/Creatinine Ratio Glucose POC Glucose 161 H 183 H 160 H Calcium 06/01/19 06/01/19 06/01/19 04:57 04:57 07:51 WBC 17.89 H RBC 3.76 L Hgb 11.0 L Hct 34.7 L MCV 92.3 MCH 29.3 MCHC 31.7 L RDW Std Deviation 51.4 H RDW Coeff of Alise 15.2 H Plt Count 385 MPV 9.3 Immature Gran % (Auto) 0.3 Neut % (Auto) 79.3 Lymph % (Auto) 15.8 Rincon % (Auto) 4.5 Eos % (Auto) 0.1 Baso % (Auto) 0.0 Immature Gran # (Auto) 0.06 H Neut # (Auto) 14.18 H Lymph # (Auto) 2.83 Rincon # (Auto) 0.81 H Eos # (Auto) 0.01 Baso # (Auto) 0.00 Sodium 136 Potassium 4.0 Chloride 107 Carbon Dioxide 24 Anion Gap 5.0 BUN 9 Creatinine 0.60 Est Cr Clr Drug Dosing 151.0 Est GFR ( Amer) 119.8 Est GFR (Non-Af Amer) 103.3 BUN/Creatinine Ratio 15.7 Glucose 154 H POC Glucose 154 H Calcium 8.6 Medications Administered Current Inpatient Medications Acetaminophen (Tylenol) 1,000 mg PO Q8H PRN PRN Reason: MILD Pain Scale 1,2,3 & Pre PT Stop: 06/30/19 15:01 Al Hydrox/Mg Hydrox/Simethicone (Maalox) 30 ml PO Q6H PRN PRN Reason: Dyspepsia Stop: 06/30/19 15:01 Albuterol (Ventolin Hfa) 1 puffs INH UD PRN PRN Reason: ASTHMA Stop: 06/30/19 15:01 Amlodipine Besylate (Norvasc) 5 mg PO DAILY LUIS Stop: 07/01/19 08:59 Last Admin: 06/01/19 08:52 Dose: 5 mg Documented by: Aspirin (Ecotrin Ectab) 81 mg PO DAILY LUIS Stop: 07/01/19 08:59 Last Admin: 06/01/19 08:52 Dose: 81 mg Documented by: Atorvastatin Calcium (Lipitor) 40 mg PO QPM LUIS Stop: 06/30/19 20:59 Last Admin: 05/31/19 21:44 Dose: 40 mg Documented by: Bisacodyl (Dulcolax) 10 mg OR DAILY PRN PRN Reason: Constipation Stop: 06/30/19 15:01 Carvedilol (Coreg) 12.5 mg PO BID LUIS Stop: 06/30/19 20:59 Last Admin: 06/01/19 08:53 Dose: 12.5 mg Documented by: Diphenhydramine HCl (Benadryl Capsule) 25 mg PO Q6H PRN PRN Reason: Allergic Rhinitis/Insomnia Stop: 06/30/19 15:01 Ezetimibe (Zetia) 10 mg PO HS [facility] Stop: 06/30/19 20:59 Last Admin: 05/31/19 21:44 Dose: 10 mg Documented by: Enalapril Maleate (Vasotec) 40 mg PO QAM LUIS Stop: 07/01/19 08:59 Famotidine (Pepcid) 20 mg PO Q12H PRN PRN Reason: Dyspepsia Stop: 06/30/19 15:01 Hydromorphone HCl (Dilaudid) 0.5 mg IV Q3H PRN PRN Reason: MOD pain (scale 4-6) & Pre PT Stop: 06/14/19 15:01 Hydromorphone HCl (Dilaudid) 1 mg IV Q3H PRN PRN Reason: severe pain (scale 7-10) Stop: 06/14/19 15:01 Hydroxyzine HCl (Vistaril) 25 mg PO Q8H PRN PRN Reason: Anxiety Stop: 06/30/19 15:01 Acetaminophen (Ofirmev) 1,000 mg in 100 mls @ 400 mls/hr IV Q8H PRN PRN Reason: MILD Pain Rating 1,2,3 Stop: 06/01/19 15:01 Promethazine HCl 12.5 mg/ (Sodium Chloride) 50.5 mls @ 204 mls/hr IV Q6H PRN PRN Reason: Nausea &/or Vomiting Stop: 06/30/19 15:01 Lorazepam (Ativan) 0.5 mg in 1 mls @ 0.5 mls/min IV Q8H PRN PRN Reason: Sedation/Anxiety Stop: 06/30/19 15:01 Influenza Virus Vaccine Quadrival (Flu Vaccine, Do Not Administer) 1 ea N/A PRN PRN PRN Reason: Notification Stop: 06/30/19 15:01 Insulin Aspart (Novolog Flexpen) 0 units SC ACHS [facility] Stop: 06/30/19 20:59 Last Admin: 06/01/19 08:53 Dose: 3 units Documented by: Ketorolac Tromethamine (Toradol) 15 mg IV Q6 [facility] Stop: 06/01/19 12:01 Last Admin: 06/01/19 04:49 Dose: 15 mg Documented by: Lorazepam (Ativan) 0.5 mg PO Q8H PRN PRN Reason: Sedation/Anxiety Stop: 06/30/19 15:01 Magnesium Hydroxide (Milk Of Magnesia) 30 ml PO DAILY PRN PRN Reason: Constipation Stop: 06/30/19 15:01 Metoclopramide HCl (Reglan) 10 mg IV Q6H PRN PRN Reason: Nausea &/or Vomiting Stop: 06/30/19 15:01 Miscellaneous (Order Awaiting Action) 1 ea N/A QS LUIS Stop: 06/30/19 15:59 Last Admin: 06/01/19 08:47 Dose: Not Given Documented by: Naloxone HCl (Narcan) 0.1 mg IV Q5M PRN; Protocol PRN Reason: Oversedation/Resp Depression Stop: 06/30/19 15:01 Ondansetron HCl (Zofran) 4 mg IV Q6H PRN PRN Reason: Nausea &/or Vomiting Stop: 06/30/19 15:01 Ondansetron HCl (Zofran Odt) 4 mg PO Q6H PRN PRN Reason: Nausea Stop: 06/30/19 15:01 Oxycodone HCl (Roxicodone Immediate Rel) 5 - 10 mg PO Q4H PRN PRN Reason: Moderate-Severe Pain & Pre PT Stop: 06/14/19 15:01 Last Admin: 06/01/19 07:54 Dose: 10 mg Documented by: Pantoprazole Sodium (Protonix) 40 mg PO QAM LUIS Stop: 07/01/19 08:59 Last Admin: 06/01/19 08:51 Dose: 40 mg Documented by: Pneumococcal Polyvalent Vaccine (Pneumococcal Vacc, Do Not Administer) 1 ea N/A PRN PRN PRN Reason: Notification Stop: 06/30/19 15:01 Polyethylene Glycol (Miralax Powder Packet) 17 gm PO Q6 LUIS Stop: 07/01/19 05:59 Last Admin: 06/01/19 05:18 Dose: 17 gm Documented by: Senna/Docusate Sodium (Senokot S) 2 tab PO HS LUIS Stop: 06/30/19 20:59 Last Admin: 05/31/19 21:44 Dose: 2 tab Documented by: Sodium Biphosphate/Sodium Phosphate (Fleet Enema) 132 ml OR ONE PRN PRN Reason: Constipation Stop: 06/30/19 15:01 Tramadol HCl (Ultram) 50 - 100 mg PO Q4H PRN PRN Reason: Moderate-Severe Pain & Pre PT Stop: 06/30/19 15:01 Vitamin D (Vitamin D3) 5,000 units PO DAILY LUIS Stop: 07/01/19 08:59 Last Admin: 06/01/19 08:53 Dose: 5,000 units Documented by: PG Care Time/CCT Total # of Minutes Spent Total Time Spent with Patient: Total time spent is greater than 50% in coordination of care (as documented) at patient's floor/unit and/or counseling patient: Coding Level of Care Code 52809 Subseq Hosp Care Lvl 2 Diagnoses Lumbar radiculopathy M54.16 Spondylolisthesis of lumbar region M43.16 Type 2 diabetes mellitus E11.9 CAD (coronary artery disease) I25.10 HTN (hypertension) I10
--- NOTE | 2019-06-01 10:43 | Orthopedic Progress Note ---
Date of Service June 01, 2019 Assessment & Plan (1) Lumbar radiculopathy: At this time patient strength is improving she is ambulating well. She is going to continue with physical therapy hopefully discharge home in the next few days. Present on Admission?: Yes Admission and Anticipated Discharge Date Admission Date: May 31, 2019 Subjective Back pain controlled leg symptoms markedly improved. Physical Exam Physical Exam: Patient has good strength testing appears comfortable. Results & Data ([facility]) Vital Signs (Past 12 Hours) Vital Signs Temp Pulse Pulse Resp BP Pulse Ox 06/01/19 08:51 82 142/84 H 06/01/19 07:10 36.7 C 86 18 126/71 97 06/01/19 03:07 36.5 C 84 15 123/78 94 06/01/19 00:10 36.4 C L 90 16 145/90 H 93
[2019-06-01] MEDS ORDERED: ENALAPRIL MALEATE 10 MG TAB PO STA (11:32)
[2019-06-01] MEDS: TRAMADOL HCL 50 MG TABLET PO PRN ×2 (16:56→21:27)
[2019-06-01] MEDS: DOCUSATE SODIUM/SENNA 50/8.6MG TAB PO SCH (17:34)
[2019-06-01] MEDS: EZETIMIBE 10 MG TABLET PO SCH (21:26)
[2019-06-01] MEDS: ATORVASTATIN 40 MG TAB PO SCH (21:26)
[2019-06-02] MEDS: OXYCODONE HCL IR 5 MG TAB (IMMEDIATE RELEASE) PO PRN ×2 (04:07→11:11)
[2019-06-02] MEDS: POLYETHYLENE (MIRALAX) 17 GM PACK PO SCH (06:27)
[2019-06-02] MEDS: carvediloL 12.5 MG TAB PO SCH (08:29)
[2019-06-02] MEDS: CHOLECALCIFEROL 1,000 UNITS 25 MCG TAB PO SCH (08:30)
[2019-06-02] MEDS: AMLODIPINE BESYLATE 5 MG TAB PO SCH (08:31)
[2019-06-02] MEDS: PANTOprazole 40 MG TAB PO SCH (08:31)
[2019-06-02] MEDS: ASPIRIN 81 MG ECTAB PO SCH (08:32)
[2019-06-02] MEDS: INSULIN ASPART 100 UNITS/ML 3 ML PEN SC SCH (08:40)
--- NOTE | 2019-06-02 10:31 | Discharge Summary ---
Date of Service June 02, 2019 Admission HPI Per Admitting Provider This is a 53-year-old female presents with chronic persistent low back pain and now worsening bilateral leg pain and weakness right greater than left. She is undergone extensive course of nonoperative care over the years but now has had progressive pain specifically involving the right buttock posterior thigh extending into the foot. In the standing walking and sitting is markedly limited. She is utilizing a wheelchair as she is unable to stand. Principal Diagnosis Lumbar spondylolisthesis with radiculopathy Discharge Data Allergies Allergy/AdvReac Type Severity Reaction Status Date / Time hydrocodone Allergy Severe Severe Verified 05/31/19 08:47 Hives adhesive Allergy Unknown SKIN Verified 05/31/19 08:47 REDNESS, SKIN BLISTERS, SKIN TEAR amitriptyline Allergy Unknown RAISES Verified 05/31/19 08:47 BLOOD PRESSURE bee venom protein (honey bee) Allergy Unknown SEVERE Verified 05/31/19 08:47 SWELLING AT BITE SITE chlorhexidine Allergy Unknown SKIN Verified 05/31/19 08:47 REDNESS AND SKIN BURNING SENSATION latex Allergy Unknown SEE NOTES Verified 05/31/19 08:47 BELOW erythromycin base AdvReac Unknown STOMACH Verified 05/31/19 08:47 PAINS AND DIARRHEA Consultations 05/31/19 15:02 Consult Case Management - Discharge Planning Routine Consult Hospitalist Routine Procedures Performed Operation Date: 05/31/19 10:05 Actual Procedures p L5-S1 Decompression and Fusion, Interbody Cage Insertion L5-S1, Spinal Cord Monitoring(Not Applicable) - Ryan Karimi, Ordered Studies 05/31/19 10:05 FL fluoroscopy <1hr Routine FL lumbar spine 2-3V Routine Hospital Course (1) Lumbar radiculopathy: Patient with lumbar decompression fusion tolerated this well was taken to the orthopedic for postoperative. Postop day 1 she was up and ambulating leg pain and weakness improving dramatically. She progressed to postop day #2. BETZY drain decreasing appropriately. Excellent strength testing. Subsequently discharged home. Discharge orders and instructions found in the chart for further review. Total Time Total Time Spent Total Time Spent (In Minutes): 20 minutes Discharge Plan Discharge Items Patient Disposition: Home - Self-Care Reason For Visit: Spinal Stenosis, Lumbar Region Without Neurogenic Discharge Diagnosis: Lumbar spinal stenosis with neurogenic claudication and weakness Activity: As commented below Non-emergency contact: Primary Care Provider Call non-emergency contact if: you have any medication questions Follow-up/Referrals: [place],Karan [Primary Care Provider] - Diet: Regular Addtl Attending Provider Instructions: ACTIVITY RECOMMENDATIONS: SELF CARE INSTRUCTIONS AFTER THORACIC/LUMBAR FUSIONS 1. You may walk to your tolerance. It is good exercise for your legs and back. Expect some back and intermittent leg aches and pains. 2. You may perform "counter-top" level activities (make a sandwich, juliana with a project, etc.). 3. No bending or lifting of more than 10 pounds or back twisting of any nature (roll like a log when turning in bed). 4. You may ride in a car for 20-30 minutes at a time. No driving until after your first visit with your doctor. 5. Frequent changes of position and restricting sitting to 30 minutes at a time will help limit the amount of back spasms and stiffness you may experience. 6. You may discontinue the use of ambulatory aids (cane, crutches, etc.) once your strength and confidence allow. 7. You may electrical systems engineer the shower and let water strike your incision when you arrive home at least once daily. Do not take a tub bath, sit in a hot tub or go into a swimming pool until after your first recheck in the office. SPECIAL CARE INSTRUCTIONS: VERY IMPORTANT TO READ AND REVIEW A. Your surgical incision has been closed with a cosmetic suture under the skin that will dissolve in about 6 weeks. In 14 days, you can use a pair of clean scissors and cut the suture that is left outside of the skin at the ends of your incision. 1. The small skin tapes can be removed 7 days after surgery if they have not fallen off by that point. 2. You may keep the wound open to air as much as possible to promote healing after post-op day number 5 unless told otherwise by your doctor. 3. If you think the wound looks like it is becoming infected (redness or worsening drainage) and/or you are experiencing fever, chill or worsening back pain and muscle spasms, contact the office so that we may evaluate you as soon as possible. B. Complications are uncommon, but please contact us if you have any signs or symptoms of: 1. wound infection (fever higher than 102.5 degrees F, redness, separation of wound, drainage, or increasing pain from the incision) 2. blood clots in legs (pain, swelling, redness and warmth in legs) 3. urinary tract infection (fever higher than 102.5 degrees F, burning upon urination or increased frequency of urination) 4. nerve problems (inability to walk on your toes or heels, numbness, loss of bowel or bladder control) 5. any other symptoms that concern you C. Please call the office at if you have any concerns or questions about your operation or recovery. D. No smoking! Smoking drastically decreases the chance of a solid fusion. E. Do not take any anti-inflammatory medications (Indocin, Advil, Motrin, Aspirin, Naprosyn, etc.) as these may inhibit the chance of a solid fusion. Tylenol is okay to take for pain. MANAGING PAIN AFTER SPINAL SURGERY 1. Narcotic medication is intended for short-term use and will be provided for surgical pain. Surgical pain usually lasts for a period of 4-6 weeks. Narcotic medication includes Percocet, Vicodin, Darvocet, Tylenol #3 or Lortab. 2. Longer-term pain is more appropriately treated with non-narcotic medication such as Tylenol ES. 3. Muscle spasm is not appropriately treated with narcotics. Muscle relaxers such as Soma, Flexeril or Skelaxin can be used along with Tylenol ES. 4. Remember that we all live with some "aches and pains". This is not unusual or uncommon after an injury or as we get older. a. Back pain is expected and may include muscle spasms for 4 to 6 weeks after surgery. The pain should gradually improve. If the pain worsens for no apparent reason, please contact the office. b. Intermittent leg pain may also be experienced and should not be concerned about unless it worsens for no apparent reason. If so, please contact the office. 5. We will provide appropriate medication within the normal guidelines of their prescribed use. We will also be very cautious and aware of potential abuse and extended duration of patients' medication needs. a. Pain medications are for your comfort and to assist with sleep and rest so that the tissue can heal. They are not provided in order to return to normal activity and should not be used through the day. To do so or worsening pain at night can result from ongoing tissue damage and development of tolerance to the prescribed medicine. 6. Please allow 2-3 days to process refills. Prescriptions will not be mailed but must be picked up at the office. FOLLOW UP VISIT: Keep your scheduled follow-up appointment. Any questions, please call the office at . Pending Studies at Discharge: No Stand-Alone Forms: [facility] [employer], Smoking Cessation Medications and DC Order Prescriptions: New tramadol 50 mg tablet 50 mg PO Q6H PRN (Reason: pain, moderate) Qty: 20 RF: 0 oxycodone 5 mg tablet 5 mg PO Q6H PRN (Reason: pain, severe) Qty: 20 RF: 0 Continued atorvastatin [Lipitor] 40 mg tablet 40 mg PO QPM RF: 0 ezetimibe [Zetia] 10 mg tablet 10 mg PO HS RF: 0 Trulicity 1.5 mg/0.5 mL pen injector 1.5 mg SQ WEEKLY RF: 0 metformin 1,000 mg tablet 1,000 mg PO BID RF: 0 carvedilol [Coreg] 12.5 mg tablet 12.5 mg PO BID RF: 0 ramipril 10 mg capsule 10 mg PO QAM RF: 0 aspirin [Adult Aspirin Regimen] 81 mg tablet,delayed release (DR/EC) 81 mg PO DAILY RF: 0 pantoprazole [Protonix] 40 mg tablet,delayed release (DR/EC) 40 mg PO QAM RF: 0 cholecalciferol (vitamin D3) [Vitamin D3] 125 mcg (5,000 unit) Tablet 5,000 unit PO DAILY RF: 0 albuterol sulfate 90 mcg/actuation Hfa Aerosol Inhaler 1 inh INHALATION UD PRN (Reason: ASTHMA) RF: 0 amlodipine [Norvasc] 5 mg Tablet 5 mg PO DAILY RF: 0 Discontinued ibuprofen 400 mg Tablet 400 mg PO BID RF: 0 Discharge Orders: Discharge Order (Routine); Ordered 06/02/19 Ordered By: Ryan Karimi Admission Data Admit Date/Time: 05/31/19 14:50 Attending Provider: Ryan Karimi Admit Provider: Ryan Karimi Primary Care Provider: Karan Carrion Other Providers: Terrance Mercado
== END 2019-06-02 12:38 | disposition home or self-care (01) | DRG 455 ==
LOC: ASU 08:22 → 3E 14:50